=== PATIENT | male | born 1990 | race Hispanic/Latino ===

== ENCOUNTER 2018-04-25 14:23 | Outpatient (CLI) | payer BC ==
--- NOTE | 2018-04-25 14:48 | RAD ---
PA AND LATERAL VIEWS CHEST: HISTORY: Cough. FINDINGS: The heart size is normal. The lungs are expanded and clear. The bony thorax is normal. IMPRESSION: Normal exam. POS: [facility]
== END 2018-04-25 14:24 | disposition home or self-care (01) ==
LOC: BICRAD 14:23
PROVIDERS: ATTEND Family Medicine
DX: R05 Cough (principal)
CPT/HCPCS: 71046

== ENCOUNTER 2018-06-07 11:06 | Outpatient (CLI) | payer BC ==
--- NOTE | 2018-06-07 12:52 | ULT ---
ULTRASOUND ABDOMEN: HISTORY: Abdominal pain. FINDINGS: The liver, spleen, gallbladder, kidneys, and visualized portions of the aorta and IVC appear normal. The pancreas is obscured by overlying bowel gas. The common duct measures 2 mm in diameter. No robert e fluid is seen. IMPRESSION: Poor visualization of the pancreas; otherwise, unremarkable exam. POS: OFF
== END 2018-06-07 11:07 | disposition home or self-care (01) ==
LOC: BICULT 11:06
PROVIDERS: ATTEND Family Medicine
DX: R10.84 Generalized abdominal pain (principal)
CPT/HCPCS: 76700

== ENCOUNTER 2021-07-27 20:13 | Inpatient (IN) | payer BC ==
[2021-07-27 20:37] LABS: #Eosinphils 0.1 thou/uL (0.0-0.7); #Lymphocytes 1.9 thou/uL (1.20-3.40); #Monocytes 0.3 thou/uL (0.11-0.59); %Basophils 0.3 % (0.0-1.0); %Eosinophils 2.2 % (0.0-10.0); %Lymphocytes 29.7 % (21.0-51.0); %Monocytes 5.2 % (0.0-10.0); %Neutrophils 62.7 % (42.0-75.0); Hemoglobin 16.8 g/dL (14.0-18.0); Mean Corpuscular HGB CONC 32.9 g/dL (32.0-36.0); Mean Corpuscular Hemoglobin 29.9 pg (27.0-31.0); Mean Corpuscular Volume 90.8 fL (78.0-98.0); Mean Platelet Volume 8.1 fL (7.4-10.4); Platelet Count 218 thou/uL (130-400); RBC Distribution Width 12.5 % (11.5-14.5); Red Blood Cell (RBC) Count 5.63 mill/uL (4.70-6.10); White Blood Cell (WBC) Count 6.4 thou/uL (4.8-10.8)
[2021-07-27 21:00] LABS: ALT (SGPT) 293 U/L (8-55); AST (SGOT) 109 U/L (5-34); Albumin 4.5 g/dL (3.5-5.0); Alkaline Phosphatase 289 U/L (40-110); Anion Gap 16 mmol/L (10-20); BUN (Urea Nitrogen) 9 mg/dL (8.9-20.6); Bilirubin, Total 6.3 mg/dL (0.2-1.2); Calc. Creatinine Clearance 0 mL/min (70-130); Calcium 9.6 mg/dL (7.8-10.44); Carbon Dioxide 23 mmol/L (22-29); Chloride 101 mmol/L (98-107); Globulin 3.6 g/dL (2.4-3.5); Glucose 92 mg/dL (70-105); Lipase 53 U/L (8-78); Potassium 3.5 mmol/L (3.5-5.1); Protein, Total 8.1 g/dL (6.0-8.3); Sodium 136 mmol/L (136-145)
[2021-07-27 23:06] LABS: Bilirubin 2+ (Negative); Blood, Urine Negative (Negative); Clarity Clear (Clear); Glucose, Urine (Dipstick) Normal (Negative); Ketone, Urine 20 mg/dL (Negative); Leukocyte Negative Leu/uL (Negative); Nitrite Negative (Negative); Protein, Urine (Dipstick) 20 mg/dL (Neg-Trace); Specific Gravity, Urine 1.027 (1.002-1.036); Urobilinogen Normal mg/dL (Less than 2)
[2021-07-27] MEDS ORDERED: Piperacillin/Tazobactam 3.375 GM VIAL ONE (23:38)
[2021-07-27] MEDS ORDERED: Ondansetron PF 4 MG/2 ML Vial ONE ×2 (23:38→23:39)
[2021-07-27] MEDS ORDERED: Morphine 4 MG/ML VIAL ONE (23:38)
[2021-07-28] MEDS ORDERED: Ondansetron PF 4 MG/2 ML Vial IVP PRN (10:18)
[2021-07-28] MEDS ORDERED: Morphine 2 MG/ML VIAL SLOW IVP PRN (10:18)
[2021-07-28 11:57] LABS: SARS-CoV-2 PCR by NAA Not Detected (NotDetected)
[2021-07-28] MEDS ORDERED: Morphine 4 MG/ML VIAL SLOW IVP PRN (11:57)
[2021-07-28] MEDS ORDERED: Piperacillin/Tazobactam 3.375 GM in Sodium Chloride 0.9% 100 ML IVPB SCH ×2 (12:00→15:00)
[2021-07-28 15:40] VITALS: BMI 33.4
[2021-07-28] MEDS: D5 1/2 NS w/20 mEq KCL 1,000 ML IV SCH ×2 (15:51→17:51)
[2021-07-28] MEDS: Morphine 4 MG/ML VIAL SLOW IVP PRN (15:52)
[2021-07-28] MEDS: Piperacillin/Tazobactam 3.375 GM in Sodium Chloride 0.9% 100 ML IVPB SCH (21:04)
[2021-07-29] MEDS: Piperacillin/Tazobactam 3.375 GM in Sodium Chloride 0.9% 100 ML IVPB SCH ×3 (05:01→19:52)
[2021-07-29] MEDS: D5 1/2 NS w/20 mEq KCL 1,000 ML IV SCH ×3 (05:01→17:58)
[2021-07-29 06:36] LABS: #Eosinphils 0.2 thou/uL (0.0-0.7); #Lymphocytes 1.3 thou/uL (1.20-3.40); #Monocytes 0.4 thou/uL (0.11-0.59); #Neutrophils 3.1 thou/uL (1.40-6.50); %Eosinophils 4.7 % (0.0-10.0); %Lymphocytes 25.7 % (21.0-51.0); %Monocytes 8.6 % (0.0-10.0); Mean Corpuscular HGB CONC 33.3 g/dL (32.0-36.0); Mean Corpuscular Hemoglobin 30.3 pg (27.0-31.0); Mean Platelet Volume 8.6 fL (7.4-10.4); Platelet Count 205 thou/uL (130-400); RBC Distribution Width 12.2 % (11.5-14.5); Red Blood Cell (RBC) Count 5.27 mill/uL (4.70-6.10); White Blood Cell (WBC) Count 5.1 thou/uL (4.8-10.8)
[2021-07-29 06:50] LABS: ALT (SGPT) 199 U/L (8-55); AST (SGOT) 73 U/L (5-34); Albumin 3.8 g/dL (3.5-5.0); Alkaline Phosphatase 233 U/L (40-110); Anion Gap 14 mmol/L (10-20); BUN (Urea Nitrogen) 8 mg/dL (8.9-20.6); Bilirubin, Total 5.3 mg/dL (0.2-1.2); Calc. Creatinine Clearance 181 mL/min (70-130); Calcium 8.9 mg/dL (7.8-10.44); Carbon Dioxide 27 mmol/L (22-29); Chloride 102 mmol/L (98-107); Globulin 3.2 g/dL (2.4-3.5); Glucose 91 mg/dL (70-105); Potassium 3.7 mmol/L (3.5-5.1); Sodium 139 mmol/L (136-145)
[2021-07-29] MEDS: Pantoprazole 40 MG VIAL IVP SCH (08:32)
[2021-07-29] MEDS ORDERED: Iothalamate Meglumine 60% 50 ML VIAL FS ONE (08:46)
[2021-07-29] MEDS ORDERED: Indomethacin 50 MG SUPP ONE (08:47)
[2021-07-29] MEDS ORDERED: Fentanyl 250 MCG/5 ML VIAL ONE (08:56)
[2021-07-29] MEDS ORDERED: Ondansetron PF 4 MG/2 ML Vial ONE (09:02)
[2021-07-29] MEDS ORDERED: PROPOFOL 200 MG/20 ML VIAL ONE (09:02)
[2021-07-29] MEDS ORDERED: Lidocaine 1% PF 5 ML VIAL ONE (09:02)
[2021-07-29] MEDS ORDERED: Rocuronium Bromide 10 MG/ML (10ML VIAL) ONE (09:02)
[2021-07-29] MEDS ORDERED: Dexamethasone 20 MG/5 ML VIAL ONE (09:02)
[2021-07-29] MEDS ORDERED: Ketorolac Tromethamine 30 MG/ML VIAL ONE (09:02)
[2021-07-29] MEDS ORDERED: GLYCOPYRROLATE/PF 0.2 MG/ML VIAL ONE (09:02)
[2021-07-29] MEDS ORDERED: Promethazine HCl 25 MG/ML VIAL IM PRN (09:52)
[2021-07-29] MEDS ORDERED: Ondansetron HCl/PF 4 MG/2 ML Vial IVP PRN (09:52)
[2021-07-29] MEDS ORDERED: Promethazine HCl 25 MG/ML VIAL IVPB PRN (09:52)
[2021-07-29] MEDS ORDERED: Acetaminophen 325 MG TAB PO PRN (14:43)
[2021-07-29] MEDS: HYDROcodone/Acetaminophen 7.5/325 mg Tablet PO PRN (18:28)
[2021-07-29] MEDS: Morphine 4 MG/ML VIAL SLOW IVP PRN (19:57)
[2021-07-30] MEDS: Piperacillin/Tazobactam 3.375 GM in Sodium Chloride 0.9% 100 ML IVPB SCH ×2 (04:51→11:20)
[2021-07-30] MEDS: D5 1/2 NS w/20 mEq KCL 1,000 ML IV SCH ×2 (04:52→08:35)
[2021-07-30] MEDS: Pantoprazole 40 MG VIAL IVP SCH (08:17)
[2021-07-30] MEDS ORDERED: Fentanyl 250 MCG/5 ML VIAL ONE ×2 (11:45→13:30)
[2021-07-30] MEDS ORDERED: SUGAMMADEX SODIUM 200 MG/2 ML VIAL ONE (11:45)
[2021-07-30] MEDS ORDERED: Famotidine/PF 20 mg/2ml Vial ONE (11:45)
[2021-07-30] MEDS ORDERED: Xylocaine 1% w/ Epi 1:100K 10 ML VIAL ONE (11:54)
[2021-07-30] MEDS ORDERED: Bupivacaine 0.25% HCL 30 ML VIAL ONE (11:54)
[2021-07-30] MEDS ORDERED: Lidocaine 1% PF 5 ML VIAL ONE (12:05)
[2021-07-30] MEDS ORDERED: Dexamethasone 20 MG/5 ML VIAL ONE (12:05)
[2021-07-30] MEDS ORDERED: Ketorolac Tromethamine 30 MG/ML VIAL ONE (12:05)
[2021-07-30] MEDS ORDERED: Metoclopramide HCl 10 MG/2 ML VIAL ONE (12:05)
[2021-07-30] MEDS ORDERED: Rocuronium Bromide 10 MG/ML (10ML VIAL) ONE (12:05)
[2021-07-30] MEDS ORDERED: PROPOFOL 200 MG/20 ML VIAL ONE (12:05)
[2021-07-30] MEDS ORDERED: Ondansetron PF 4 MG/2 ML Vial ONE (12:05)
[2021-07-30] MEDS ORDERED: Promethazine HCl 25 MG/ML VIAL IVPB PRN (13:11)
[2021-07-30] MEDS ORDERED: Promethazine HCl 25 MG/ML VIAL IM PRN (13:11)
[2021-07-30] MEDS ORDERED: Meperidine HCl/PF 25 MG/ML VIAL SLOW IVP PRN (13:11)
[2021-07-30] MEDS ORDERED: Ondansetron HCl/PF 4 MG/2 ML Vial IVP PRN (13:11)
[2021-07-30] MEDS ORDERED: Meperidine HCl/PF 25 MG/ML VIAL ONE (13:14)
[2021-07-30] MEDS: HYDROcodone/Acetaminophen 7.5/325 mg Tablet PO PRN (14:20)
[2021-07-30 14:23] VITALS: BP 115/71; TEMP 97.9
== END 2021-07-30 15:00 | disposition home or self-care (01) | DRG 419 ==
LOC: ERS 20:13 → ERHOLD 23:40 → T4-A 07-28 15:25
PROVIDERS: ADMIT Surgery; ATTEND Surgery
PROC: 0F798ZZ Dilation of Common Bile Duct, Via Natural or Artificial Opening Endoscopic (ICD-10-PCS; 2021-07-29)
PROC: BF141ZZ Fluoroscopy of Gallbladder, Bile Ducts and Pancreatic Ducts using Low Osmolar Contrast (ICD-10-PCS; 2021-07-29)
PROC: 0FT44ZZ Resection of Gallbladder, Percutaneous Endoscopic Approach (ICD-10-PCS; principal; 2021-07-30)
DX: K80.66 Calculus of gallbladder and bile duct with acute and chronic cholecystitis without obstruction (principal); K83.8 Other specified diseases of biliary tract; Z20.822 Contact with and (suspected) exposure to COVID-19
CPT/HCPCS: 36415; 74330; 76705; 80053; 81003; 83690; 85025; 88304; 96374; 96375; C1713; C9113; J1100; J1885; J2175; J2270; J2405; J2543; J2704; J2765; J3010; J3480; J3490; Q9961-U8; S0020; S0028; U0003; U0005